=== PATIENT | male | born 1995 | race African-American/Black ===

== ENCOUNTER 2017-01-30 23:38 | Emergency (ER) | payer BC, OTHER ==
[~2017-01-30] VITALS: Ht 193 cm; Wt 99.8 kg
[2017-01-31] MEDS ORDERED: NAPROSYN500 MG PO (01:22)
[2017-01-31 01:50] VITALS: BP 121/76
== END 2017-01-31 01:23 | disposition home or self-care (01) ==
LOC: ER 23:38
DX: S93.402A Sprain of unspecified ligament of left ankle, initial encounter (principal); W13.2XXA Fall from, out of or through roof, initial encounter; Y93.89 Activity, other specified; Y92.89 Other specified places as the place of occurrence of the external cause; Y99.0 Civilian activity done for income or pay